=== PATIENT | female | born 1990 | race Hispanic/Latino ===

== ENCOUNTER 2022-02-28 16:50 | Emergency (ER) | payer BC, MEDICAID ==
[~2022-02-28] VITALS: Ht 157.5 cm; Wt 73.5 kg
[2022-02-28 16:52] VITALS: BP 117/66
[2022-02-28 17:32] LABS: APPEARANCE,URINE CLOUDY (CLEAR); BILIRUBIN,URINE NEGATIVE (NEGATIVE); COLOR,URINE YELLOW (YELLOW); GLUCOSE, URINE (UA) NEGATIVE (NEGATIVE); KETONES,URINE NEGATIVE (NEGATIVE); LEUKOCYTE ESTERASE ,URINE 75 Leu/uL (NEGATIVE); NITRATE,URINE 2+ (NEGATIVE); OCCULT BLOOD,URINE SMALL (NEGATIVE); PROTEIN,URINE 10 mg/dL (NEGATIVE)
[2022-02-28 17:34] LABS: HCG,QUALITATIVE URINE NEGATIVE (NEGATIVE)
[2022-02-28 17:37] LABS: BACTERIA,URINE RARE /HPF (None Seen); MUCUS,URINE RARE LPF (None Seen); SQUAMOUS EPITHELIAL CELL,UR MOD /HPF (0-2)
[2022-02-28] MEDS ORDERED: PHEN-847 PO (18:52)
[2022-02-28] MEDS ORDERED: SULF1TAB42 PO (18:52)
[2022-02-28] MEDS ORDERED: IBUPROFEN 600 MG TABLET PO ONE (19:00)
[2022-02-28] MEDS ORDERED: IBUP-2070 PO (20:49)
== END 2022-02-28 20:54 | disposition home or self-care (01) ==
LOC: EDH 16:50
DX: N39.0 Urinary tract infection, site not specified (principal); Z79.1 Long term (current) use of non-steroidal anti-inflammatories (NSAID); Z79.899 Other long term (current) drug therapy
CPT/HCPCS: 72220; 81001; 81025; 87077; 87088; 87186

== ENCOUNTER 2023-11-18 08:55 | Emergency (ER) | payer BC ==
[~2023-11-18] VITALS: Ht 162.6 cm; Wt 74.8 kg
[~2023-11-18 08:55] MED LIST: IBUP-2070 PO; PHEN-847 PO; SULF1TAB42 PO
[2023-11-18 09:07] VITALS: BP 127/74; PULSE 80; RESP 14; TEMP 97.6; O2SAT 100
== END 2023-11-18 11:34 | disposition home or self-care (01) ==
LOC: EDH 08:55
DX: H20.9 Unspecified iridocyclitis (principal); Z79.899 Other long term (current) drug therapy; Z98.890 Other specified postprocedural states
CPT/HCPCS: 99281

== ENCOUNTER 2024-07-21 15:35 | Emergency (ER) | payer BC ==
[~2024-07-21] VITALS: Ht 157.5 cm; Wt 68.0 kg
[2024-07-21 15:51] VITALS: TEMP 98.2
--- NOTE | 2024-07-21 16:10 | ERN ---
ED Note History of Present Illness Stated Complaint: INJURY ON TOES AND FOOT Chief Complaint: Lower Extremity Pain/Injury Time Seen by MD: 15:58 Time Seen by Midlevel: 15:59 Dictation: 34-year-old female presents to the emergency department due to reported having sustained a toe injury to the 4th toe of the right foot 3 days ago. Patient states that she was in the process of opening a door when she bumped her toe against it. At this time, she rates her pain that was a 4/10. There is no report of any fever but does report having some chills. Patient states that she was evaluated at a local emergency department and was told that she show no evidence of a toe fracture. She reports having discomfort upon ambulation. Upon initial evaluation, the patient presents mildly uncomfortable looking. Allergies: Coded Allergies: No Known Allergies (Unverified Allergy, Unknown, 07/26/15) Home Meds Active Scripts Ibuprofen (Ibuprofen) 600 Mg Tablet, 600 MG PO Q6H PRN for PAIN for 5 Days, #20 TAB Prov:JAKE VIERA 02/28/22 Phenazopyridine HCl (Pyridium) 200 Mg Tab, 200 MG PO TIDPC, #6 TAB TAKE WITH FOOD TO PREVENT STOMACH UPSET. Prov:JAKE VIERA 02/28/22 Sulfamethoxazole/Trimethoprim (Bactrim Ds Tablet) 1 Each Tablet, 1 TAB PO BID for 7 Days, #14 TAB 0 Refills Prov:JAKE VIERA 02/28/22 Past Medical History Past Medical History: No Pertinent History Surgical History: LMP: Jul 21, 2024 : 1 Para: 1 Aborts: 0 RN Note Reviewed/Agreed w/PFSH: Yes Review of System Dictation MS/Extremity: Tenderness to the 4th toe of the right foot Skin: Abrasion of the 4th toe of the right foot Initial Vital Sign VS Vital Signs Date Time Temp Pulse Resp B/P (MAP) Pulse Ox O2 Delivery O2 Flow Rate FiO2 07/21/24 15:49 98.2 89 16 138/78 98 Room Air* 0 21 Physical Exam Dictation General: awake, alert, NAD Head/Face: Normocephalic, atraumatic Eyes: PERRL, EOMI ENT: Oral mucosa moist Neck: Trachea midline, supple Cardiovascular: RRR, no edema Respiratory: Symmetrical, non-labored Abdomen: Soft, non-tender, non-distended, no guarding. Skin: Nonbleeding abrasion noted to the right foot along the medial portion MS/Extremity: Pain and tenderness to the 4th toe of the right foot. Normal neurovascular examination. Neuro: COAx4, GCS 15, steady gait, Psych: Normal behavior, mood, and affect normal Results (Laboratory/Radiology) X-RAY Comment: Two-view x-ray of the toes of the right foot with no cortical anomalies as interpreted me. ED Course ED Course Orders Procedure Category Date Status Time Toe(S) 2+Vws Rt RAD 07/21/24 Taken 16:04 Vital Signs Date Time Temp Pulse Resp B/P (MAP) Pulse Ox O2 Delivery O2 Flow Rate FiO2 07/21/24 15:51 98.2 89 16 138/78 98 Room Air 0 07/21/24 15:49 98.2 89 16 138/78 98 Room Air* 0 21 Medical Decision Making MDM MDM: Differential diagnosis: Toe fracture, abrasion, infected abrasion. Rationale: Tests considered and ordered secondary to shared decision making include: Previous outside records reviewed: Old ER visits. Risk of complication and/or morbidity or mortality of patient management: None Medications-Per medication reconciliation Need for hospitalization: Patient does not meet criteria for hospitalization. Need for emergency major/minor surgery: No There are no social concerns with this patient. Prescription drug management Prescriptions will include symptomatic care Patient's prior external medical records from other ER visits were reviewed by me as indicated. Prior testing and results from previous visits were reviewed. Prior tests were taken into account with medical decision making and resource utilization, independent historian/historians were used to obtain complete medical history. I independently interpreted the test that were performed, results were reviewed by me and considered findings on radiology if ordered. Medical management and examination interpretation discussions were had by me with other qualified healthcare professionals as indicated for the patient's care. DX & DISP Disposition: Discharge Departure Impression: Primary Impression: Infected abrasion of toe of right foot Condition: Stable Scripts Cephalexin (Cephalexin) 500 Mg Tablet 1 TAB PO BID for 7 Days, #14 TAB 0 Refills Prov: GISEL CORONEL 07/21/24 Referrals: JAVED SUN (PCP) GISEL CORONEL Jul 21, 2024 16:10
[2024-07-21] MEDS ORDERED: CEPH500T PO (16:28)
[2024-07-21 16:33] VITALS: BP 128/70; PULSE 82; RESP 17; O2SAT 98
--- NOTE | 2024-07-21 17:57 | HMCIMG ---
TOE(S) 2+VWS RT REASON: pain TECHNIQUE: 2 views were obtained. FINDINGS: There is no evidence of fracture or dislocation. There is no joint effusion. The soft tissues appear unremarkable. There is no evidence of a radiopaque foreign body. IMPRESSION: No acute findings.
== END 2024-07-21 16:46 | disposition home or self-care (01) ==
LOC: EDH 15:35
DX: S90.414A Abrasion, right lesser toe(s), initial encounter (principal); L08.9 Local infection of the skin and subcutaneous tissue, unspecified; W22.8XXA Striking against or struck by other objects, initial encounter; Y93.89 Activity, other specified; Y92.89 Other specified places as the place of occurrence of the external cause; Y99.8 Other external cause status
CPT/HCPCS: 73660; 99283